=== PATIENT | female | born 1970 | race African-American/Black ===

== ENCOUNTER 2016-10-31 14:55 | Emergency (ER) | payer OTHER ==
[~2016-10-31] VITALS: Ht 160 cm; Wt 78.5 kg
--- NOTE | ~2016-10-31 | EKG ---
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1970 Requested By: Moris Connell Order Number: [id number] MD: Kristian Oakley Measurements Intervals [place] Rate: 65 P: 35 WA: 158 QRS: 11 QRSD: 99 T: 9 QT: 426 QTc: 443 Interpretive Statements Sinus rhythm Borderline T abnormalities, anterior leads Baseline wander in lead(s) II,V2,V3,V4,V5,V6 No previous ECG available for comparison Electronically Signed On 10-31-2016 16:04:05 [employer] by Kristian Oakley [email or web address] <ELECTRONICALLY SIGNED> By: Kristian Oakley MD 10/31/16 1604 1538 1538 Kristian Oakley MD /BRIAN
[~2016-10-31 14:55] MED LIST: ADVAIR 250-501 EACH INH; AMITRIPTYLINE H10 M1 PO; ASPIRIN81 M2 PO; CELEXA 20 MG TA20 M1 PO; CIPROFLOXACIN500 M1 PO; DARVOCET-N 1001 EACH PO; IMITREX 50 MG T50 M1 PO; NOHOMEMEDICATIONS; NORCO 5-325 TA1 EACH PO; NORCO 7.5-3251 EACH PO; ONDANSETRON HCL4 M2 PO; PHENERGAN 25 MG25 M1 PO; PROTONIX40 M2 PO; ZOFRAN4 MG PO
[2016-10-31] MEDS ORDERED: XANAX 0.25 MG0.25 MG PO (15:15)
[2016-10-31 15:22] LABS: ABSOLUTE NEUTROPHILS 3.5 thou/uL (1.4-8.2); BASOPHILS 1.4 % (0.0-2.0); EOSINOPHILS 2.7 % (0.0-3.0); HEMATOCRIT 41.9 % (37.0-47.0); HEMOGLOBIN 13.9 gm/dL (12.0-15.0); LYMPHOCYTES 39.1 % (24.0-44.0); MCH 29.9 pg (26.0-34.0); MCHC 33.2 % (28.0-37.0); MCV 90.1 fL (80.0-100.0); MONOCYTES 7.7 % (1.0-8.0); PLATELET COUNT 342 thou/uL (150-400); POLYS 49.1 % (36.0-66.0); RBC 4.65 mil/uL (4.20-5.00); RDW 14.3 % (10.5-14.5); WBC 7.1 thou/uL (4.0-11.0)
[2016-10-31 15:26] LABS: MANUAL DIFF NO
[2016-10-31 15:31] LABS: CALCIUM 9.1 mg/dL (8.5-10.1); CREATININE 0.7 mg/dL (0.6-1.3); POTASSIUM 3.8 mmol/L (3.5-5.1)
[2016-10-31 15:37] LABS: TOTAL BILIRUBIN 0.4 mg/dL (<0.1-1.0); TOTAL PROTEIN 7.6 g/dL (6.4-8.2)
[2016-10-31 16:35] LABS: URINE BILIRUBIN NEGATIVE (Negative); URINE BLOOD NEGATIVE (Negative); URINE COLOR YELLOW; URINE GLUCOSE-RANDOM* NEGATIVE (Negative); URINE KETONES NEGATIVE (Negative); URINE LEUKOCYTES-REFLEX NEGATIVE (Negative); URINE PROTEIN (DIPSTICK) NEGATIVE (Negative); URINE UROBILINOGEN 0.2 E.U./dl (0.2-1.0)
[2016-10-31] MEDS ORDERED: TORADOL 10 MG T10 MG PO (17:00)
[2016-10-31] MEDS ORDERED: ONDANSETRON HCL4 M2 PO (17:00)
[2016-11-01 14:08] LABS: CHLAMYDIA TRACHOMATIS-PCR Negative (Negative); NEISSERIA GONORRHEA-PCR Negative (Negative)
== END 2016-10-31 17:46 | disposition home or self-care (01) ==
LOC: ER 14:55
PROVIDERS: Emergency Medicine
DX: R10.12 Left upper quadrant pain (principal); R10.32 Left lower quadrant pain; G43.809 Other migraine, not intractable, without status migrainosus; Z90.49 Acquired absence of other specified parts of digestive tract; Z90.721 Acquired absence of ovaries, unilateral; Z88.8 Allergy status to other drugs, medicaments and biological substances

== ENCOUNTER → 2016-11-13 | Outpatient (CLI) | payer OTHER ==
[~2016-11-13] MED LIST changes: +TORADOL 10 MG T10 MG PO; +XANAX 0.25 MG0.25 MG PO
== END ==
LOC: CAT 13:55
DX: R10.9 Unspecified abdominal pain (principal); R10.2 Pelvic and perineal pain

== ENCOUNTER 2017-07-29 17:09 | Emergency (ER) | payer OTHER ==
[~2017-07-29] VITALS: Ht 162.6 cm; Wt 76.2 kg
[2017-07-29] MEDS ORDERED: VALIUM5 MG PO (18:07)
[2017-07-29] MEDS ORDERED: NORCO 5-325 TA1 EACH PO (18:07)
[2017-07-29] MEDS ORDERED: MOBIC15 MG PO (18:07)
== END 2017-07-29 18:34 | disposition home or self-care (01) ==
LOC: ER 17:09
DX: M46.1 Sacroiliitis, not elsewhere classified (principal); M54.18 Radiculopathy, sacral and sacrococcygeal region; G43.909 Migraine, unspecified, not intractable, without status migrainosus; Z90.49 Acquired absence of other specified parts of digestive tract; Z90.721 Acquired absence of ovaries, unilateral; Z88.8 Allergy status to other drugs, medicaments and biological substances

== ENCOUNTER → 2017-07-31 | Outpatient (CLI) | payer OTHER ==
[~2017-07-31] MED LIST changes: +MOBIC15 MG PO; +VALIUM5 MG PO
== END ==
LOC: MRI 07:00
DX: M51.36 Other intervertebral disc degeneration, lumbar region (principal)

== ENCOUNTER → 2017-12-19 | Outpatient (CLI) | payer OTHER ==
[~2017-12-19] VITALS: Ht 160 cm; Wt 78.9 kg
[~2017-12-19] MED LIST changes: +AMITRIPTYLINE H75 M1 PO; +HYDROCODON-ACE1 EAC8 PO; +MIRALAX17 GM PO; +NAPROSYN500 MG PO; +PERCOCET 7.5-31 EACH PO; +PREDNISONE 10 M10 M1 PO; +SENNA-S TABLET1 EACH PO; +SENNA8.6 MG PO; +TRAZODONE HCL50 MG PO; +ULTRAM 50MG TAB50 MG PO; +XANAX1 MG PO; +ZOFRAN ODT4 MG DISSOLVE
--- NOTE | ~2017-12-19 | HPC ---
[facility] [address] [place] [address] PAIN MANAGEMENT CONSULTATION Name: IVAN NAVARRETE Room #: REG Aretha Gallagher#: [id number] Admission: 12/19/17 Attend Phys: Valencia Jacobs MD Discharge: Date of : 70 Report #: [id number] THIS REPORT FOR: //name// CC: Jose Peralta DATE OF SERVICE: 12/19/2017 CHIEF COMPLAINT: Pain in the low back and down into the legs and feet with numbness. HISTORY OF PRESENT ILLNESS: The patient is a 47-year-old female who has been referred to the pain clinic for evaluation of pain and discomfort. Her pain became more problematic in about 06/2017. Denies any trauma. Did note that the pain started slowly and has continued to increase. It involves her lower back radiating down into her legs with numbness and tingling down into her feet. She notes that the pain is worse sometimes with lying down in certain positions, getting up after a long period or prolonged standing can be problematic as well. Denies anything that has made it significantly better. She has not noticed a significant improvement with jwbt-ydj-qfazyib nonsteroidal anti-inflammatory medications. 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 She has tried a TENS unit, but did not find that satisfactory. She had an MRI performed in the past and was told that she had some bulging of disk. She has gone twice to the Emergency Room. Describes some of the discomfort as burning, shooting, aching, throbbing, sharp when standing. Rates it as a 9/10 at this juncture. This is significantly impacting her ability to engage in activities as well as becoming more problematic with work. Prolonged sitting in her job exacerbates her discomfort. ALLERGIES: PHENERGAN CAUSES ITCHING. CURRENT MEDICATIONS: Prednisone 10 mg tablets were provided 3 times daily and the patient has completed a Medrol Dosepak, Xanax 1 mg t.i.d., hydrocodone 7.5 mg 325 one q.4h. p.r.n. pain. The patient has used Meloxicam. Has used Valium for muscle spasms. PAST MEDICAL HISTORY: Pancreatitis, migraine headaches. PAST SURGICAL HISTORY: Ectopic , left ovary removed, appendectomy in 1999. SOCIAL HISTORY: The patient denies use of tobacco. 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 Denies use of alcohol. The patient is . [facility] [address] [place] [address] PAIN MANAGEMENT CONSULTATION Name: IVAN NAVARRETE Room #: REG [facility]#: [id number] Admission: 12/19/17 Attend Phys: Valencia Jacobs MD Discharge: Date of : 70 Report #: [id number] REVIEW OF SYSTEMS: Fourteen points reveal generally good health. History of headaches, wears glasses, insomnia. LABORATORY DATA: MRI of the lumbar spine dated 07/31/2017 reveals MRI of the lumbar spine findings: 1. L1-L2, no significant bulge, canal stenosis or foraminal narrowing. Facet joints are normal. 2. L2-L3, no significant disk bulge, central stenosis and foraminal narrowing. Facet joints are normal. 3. L3-L4, no significant disk bulge, canal stenosis or foraminal narrowing. Facet joints are normal. 4. L4-L5, mild disk desiccation. No significant disk bulge, canal stenosis or foraminal narrowing. Facet joints were normal. 5. L5-S1, mild disk desiccation. No significant disk bulge, canal stenosis, or foraminal narrowing. Facet joints are normal. No pars defect or pars/pedicle stress reaction. PAIN CLINIC ASSESSMENT: 1. History of osteoarthritis involving the hands and spine. 2. No history of rheumatoid arthritis. 3. Height 5 foot 3, weight 174 pounds, BMI is 30.8. 4. VITAL SIGNS: Blood pressure 123/66, respiratory rate 14, pulse 84, saturation 98%. 5. Pain intensity rated as 9. 6. Fall risk. The patient has had no injury, but did see a doctor after a fall off exercise ball. 7. The patient is not on any blood thinners. 8. History of hypertension. The patient is not being treated for hypertension. 9. Opioid therapy. The patient is not receiving opioid therapy on greater than 6 weeks. 10. Risk assessment tool, low. 11. Functional assessment tool 49/70 in regards to general activity, mood, walking ability, work, relationships with others, sleep, enjoyment of life. 12. Recreational drug use. Denies use of recreational drugs, tobacco use. The patient has never smoked. 13. Alcohol use. The patient does not use alcohol. PHYSICAL EXAMINATION: GENERAL: The patient is a well-developed and well-nourished black female. APPEARANCE: The patient appears her stated age. ORIENTATION: The patient is alert and oriented x 3. AFFECT: The patient's affect appears appropriate. HEENT: Head is normocephalic, atraumatic. Extraocular eye muscles are intact. Hearing is good. No nasal congestion. Moist buccal membranes. NECK: Without adenopathy or masses. LUNGS: Clear to auscultation. [facility] [address] [place] [address] PAIN MANAGEMENT CONSULTATION Name: IVAN NAVARRETE Room #: REG [facility]#: [id number] Admission: 12/19/17 Attend Phys: Valencia Jacobs MD Discharge: Date of : 70 Report #: [id number] HEART: Regular rate, normal S1, S2. EXTREMITIES: Upper muscle strength is judged to be 5/5 for the major muscle groups of the upper extremity. Biceps reflexes are +1 bilaterally. Triceps and brachial radialis are difficult to appreciate. Neck flexion, extension, left and right rotation, left and right bending are within normal limits. MUSCULOSKELETAL: Alignment appears normal without scoliosis, kyphosis, or lordosis. Lumbar flexion to 60 degrees caused some increased pain and discomfort down into the patient's legs. Lumbar extension is somewhat limited. Left and right lateral bending cause some increased complaint of discomfort in the lower back area, left and right lateral bending cause some discomfort in the lower portion of the back as well. Major muscle strength is judged to be 5/5 in the major muscle groups of lower extremity. Deep tendon reflexes are +1 bilaterally, difficult to appreciate in the ankles. The patient complains of pain and discomfort with palpation in the left and right sciatic outflow tract with pain increased down the posterior portion of her leg. Straight leg raise is positive on the right. She complains of numbness, burning, stabbing sensation in the posterior portion of her legs down in the L5-S1 distribution and some discomfort in the L4-L5 distribution. The patient is able to stand on her toes, on her heels, but complains of some increased back discomfort with these maneuvers. IMPRESSION: Low back pain with clinical findings consistent with lumbar radiculopathy, L5 distribution, history of migraine headaches, and history of anxiety attacks. RECOMMENDATIONS: We discussed treatment options with the patient. At this juncture, she has the MRI results. These were reviewed with her on the computer. Areas of abnormality were noted. The patient states that she understands. Continues to have pain and discomfort in the L4 and L5 distribution. She is experiencing pain which is radiating down into her leg. Again, this pain has gotten worse over the last few months. Did fall from an exercise ball in July and was seen in the Emergency Room because of pain, which radiated down into her legs at that juncture. She was treated with medications and a conservative approach was taken. At this juncture, pain has become more problematic. She is having difficulty with activities of daily living. She sits for a prolonged periods of time at work. The pain is becoming more of a problem. At this juncture, she would like a more definitive treatment. We reviewed the anatomy of her low back with a model. We have explained that sometimes pressure on a nerve can cause pain and discomfort, which radiates down into the legs and clinically behaves as does a herniated disk. One can develop fissure and the nucleus pulposus can leak on to nerves and cause chemical irritation, which could be responsible for pain and discomfort. At this juncture, we will proceed with an epidural steroid injection. Risks and benefits of the procedure were discussed with the patient. Possible complications were discussed. We will petition her insurance company for [address] [address] PAIN MANAGEMENT CONSULTATION Name: IVAN NAVARRETE Prashant Room #: REG [facility]#: [id number] Admission: 12/19/17 Attend Phys: Valencia Jacobs MD Discharge: Date of : 70 Report #: [id number] precertification to proceed with lumbar epidural steroid injection. We would like to thank you for letting us participate in her care. We hope she continues to improve. <ELECTRONICALLY SIGNED> By: Valencia Jacobs MD 01/09/18 1429 0825 1646 Valencia Jacobs MD /nt
[2017-12-19 13:04] VITALS: BP 123/66
== END ==
LOC: PAIN 06:53
DX: M54.16 Radiculopathy, lumbar region (principal); F41.9 Anxiety disorder, unspecified; G43.909 Migraine, unspecified, not intractable, without status migrainosus; Z90.49 Acquired absence of other specified parts of digestive tract; Z90.721 Acquired absence of ovaries, unilateral; Z88.8 Allergy status to other drugs, medicaments and biological substances

== ENCOUNTER → 2017-12-25 | Outpatient (CLI) | payer OTHER | LOC: ULTRA 09:12 | DX: D25.9 Leiomyoma of uterus, unspecified (principal); N88.8 Other specified noninflammatory disorders of cervix uteri; Z90.721 Acquired absence of ovaries, unilateral ==

== ENCOUNTER → 2018-01-11 | Outpatient (CLI) | payer OTHER ==
[~2018-01-11] VITALS: Ht 160 cm; Wt 80.7 kg
--- NOTE | ~2018-01-11 | HPC ---
[facility] [address] PAIN MANAGEMENT CONSULTATION Name: IVAN NAVARRETE Room #: REG [facility] DickPamelanAaPamela#: [id number] Admission: 01/11/18 Attend Phys: Valencia Jacobs MD Discharge: Date of : 70 Report #: [id number] THIS REPORT FOR: //name// CC: Jose Peralta DATE OF SERVICE: 01/11/2018 FOLLOWUP COMPLAINT: Here for the injection. FOLLOWUP HISTORY: The patient is a 47-year-old black female. She has been seen in the pain clinic because of lumbar radiculopathy. She has pain, which is radiating down into the lower portion of her back. Her insurance company has been notified. She has been given the ability to proceed with an epidural steroid injection. She notes that the pain continues to be problematic and radiates down into the low back and down into her legs involving her feet. Notes that the pain is an 8/10. Describes it as burning, shooting, aching, tingling, sharp, throbbing and worse when she is lying down, sitting for a prolonged period of time or prolonged standing. I am not sure that anything significantly at least alleviates the pain. PHYSICAL EXAMINATION: GENERAL: The patient is a well-developed black female. She appears her stated age. She is alert and oriented x 3. Affect: The patient's affect is appropriate. HEENT: Normocephalic, atraumatic. Extraocular eye muscles intact. Hearing is good. Nasal areas are not problematic. Mucous membranes are moist. NECK: Without adenopathy or masses. LUNGS: Clear to auscultation. HEART: Regular rate with normal S1 and S2. EXTREMITIES: Muscle strength in the upper extremity is judged to be 5/5 for the major muscle groups. The lower extremity areas indicate pain and discomfort. Deep tendon reflexes are +1 at the ankles bilaterally. She has pain and discomfort with palpation in the left and right sciatic outflow tracts. Straight leg raising is positive on the right. The patient does complain of some numbness, burning and stabbing in the posterior portion of her legs at the L4-L5 distribution and some at the L4-L5 distribution. She is able to stand on her toes and her heels. Note some increased pain with this maneuver. IMPRESSION: 1. Low back pain with L5-S1 radicular pain radiating down into the posterior portion of her right L5-S1 distribution on the right. 2. History of migraine headaches. 3. [place] [address] PAIN MANAGEMENT CONSULTATION Name: IVAN NAVARRETE [facility] #: [facility] [id number] Admission: 01/11/18 Attend Phys: Valencia Jacobs MD Discharge: Date of : 70 Report #: [id number] RECOMMENDATIONS: We discussed treatment options with the patient. Risks and benefits of an epidural steroid injection were explained. Possible complications were discussed. They include, but are not limited to infection, increased muscle soreness, headache, bleeding, worsening of pain, nerve trauma, spinal headache. The patient elects to proceed. PROCEDURE NOTE: The patient was placed in prone position. Fluoroscopy was used to identify the L4, L5 and L5-S1 areas. Fluoroscopy using an anterior, posterior as well as a lateral approach were used to locate the target area for the needle. This area was infiltrated with 0.25% bupivacaine. A total of 3 mL of 0.25% bupivacaine was infiltrated. A 17-gauge Tuohy with loss of resistance technique was used to gain access to the epidural space. There was no CSF, heme or paresthesia. Total of 80 mg Depo-Medrol, 40 mg triamcinolone and 2 mL of 0.25% bupivacaine was injected. The patient tolerated the procedure well. There were no complications. She remained in the pain clinic for an appropriate amount of time. She will follow up in the future as needed. We would like to thank you for letting us participate in her care. Her pain decreased to 0 at the time of discharge, 10 seconds fluoroscopy time was used. <ELECTRONICALLY SIGNED> By: Valencia Jacobs MD 01/30/18 0816 1544 2115 Valencia Jacobs MD /[facility]
[2018-01-11 10:49] VITALS: BP 119/72
== END | disposition home or self-care (01) ==
LOC: PAIN 07:21
DX: M54.16 Radiculopathy, lumbar region (principal); G43.909 Migraine, unspecified, not intractable, without status migrainosus; Z86.59 Personal history of other mental and behavioral disorders; Z88.8 Allergy status to other drugs, medicaments and biological substances; Z79.891 Long term (current) use of opiate analgesic

== ENCOUNTER → 2018-05-06 | Outpatient (CLI) | payer OTHER ==
[~2018-05-06] MED LIST changes: -MIRALAX17 GM PO; -PERCOCET 7.5-31 EACH PO; -SENNA-S TABLET1 EACH PO; -SENNA8.6 MG PO; -ZOFRAN ODT4 MG DISSOLVE
== END ==
LOC: ULTRA 09:45
DX: K80.80 Other cholelithiasis without obstruction (principal)

== ENCOUNTER 2018-05-28 17:47 | Inpatient (IN) | payer OTHER ==
[~2018-05-28] VITALS: Ht 160 cm; Wt 77.6 kg
--- NOTE | ~2018-05-28 | PATH ---
[facility] [address] [place] [address] PATHOLOGY RPT PROCEDURE Name: IVAN NAVARRETE Prashant Room #: 417-I [facility] IN M.R.#: [id number] Admission: 05/28/18 Date of : 70 Discharge: 05/30/18 Report #: [id number] Path Case #: [id number] [facility] Accession Number: [id number] . 01 Material submitted: . GALLBLADDER . 01 Clinical history: . cholelithiasis, incarcerated umbicial hernia . 02 Diagnosis: Gallbladder, cholecystectomy: - Mild chronic cholecystitis. - Cholesterolosis. cholelithiasis. . (IUV:mml; 06/03/18) QL/06/03/2018 . 02 Electronically signed: . Oriana Real MD, Pathologist NPI- [id number] . 01 Gross description: . The specimen is received in formalin, labeled "Ivan Navarrete and gallbladder", is a previously opened 7.4 x 1.5 x 1.5 cm gallbladder. The serosa is smooth, flanagan-green. The mucosa is diffusely covered with yellow flecks. The gallbladder wall is 0.1 cm thick. No discrete calculi or masses are identified. 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 . ([facility]; 05/30/2018) . . . . / . 02 Pathologist provided ICD-10: K80.10 . 02 CPT . 490876 Performed at: [address], [place] [id number] MD Prakash Borges MD Phone: [phone] Performed at: [address] [address] PATHOLOGY RPT PROCEDURE Name: IVAN NAVARRETE Y Room #: 417-I DIS IN .R.#: [id number] Admission: 05/28/18 Date of : 70 Discharge: 05/30/18 Report #: [id number] Path Case #: [id number] [address] [id number] MD Oriana Real MD Phone: [phone]
--- NOTE | ~2018-05-28 | EKG ---
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 : 1970 Requested By: John Ramírez Order Number: [id number] MD: Luis Mcgrath Measurements Intervals [place] Rate: 61 P: 18 PA: 167 QRS: 21 QRSD: 93 T: 5 QT: 435 QTc: 439 Interpretive Statements Sinus rhythm Nonspecific T abnormalities Compared to ECG 09/26/2017 14:52:30 T-wave abnormality now present Electronically Signed On 05-29-2018 9:07:02 CDT by Luis Mcgrath [email or web address] <ELECTRONICALLY SIGNED> By: Luis Mcgrath MD, [facility] 05/29/1807 4 Luis Mcgrath MD, [facility] /EPI
--- NOTE | ~2018-05-28 | O ---
[facility] [place] [address] OPERATIVE REPORT Name: IVAN NAVARRETE Room #: 417-I [facility] IN ..#: [id number] Admission: 05/28/18 Attend Phys: John Ramírez MD Discharge: 05/30/18 Date of : 70 Report #: [id number] THIS REPORT FOR: //name// CC: Jose Ramírez DATE OF SERVICE: 05/30/2018 SURGEON: Juan Eubanks MD. APARTMENT LEASING AGENT: ERIC Hodge. PREOPERATIVE DIAGNOSIS: Symptomatic cholelithiasis. POSTOPERATIVE DIAGNOSES: 1. Symptomatic cholelithiasis. 2. Incarcerated incisional ventral hernia. PROCEDURES: 1. Laparoscopic cholecystectomy with intraoperative cholangiogram. 2. Laparoscopic primary repair of incarcerated incisional ventral hernia. ANESTHESIA: General endotracheal anesthesia and local anesthetic. ESTIMATED BLOOD LOSS: 5 mL. SPECIMEN: Gallbladder. COMPLICATIONS: None appreciated. INDICATIONS FOR PROCEDURE: This is a 47-year-old female patient with a known history of gallstones. She was seen in [facility] with right upper quadrant abdominal pain radiating to her right back, with nausea and emesis. Her symptoms have been intermittently occurring over the past 2 months. She also complained of chest pain and was seen by Cardiology, who cleared her from a cardiac standpoint. Her CT during this admission was normal; however, her ultrasound revealed a large mobile gallstone measuring nearly 2.5 cm in size. No gallbladder wall thickening, pericholecystic fluid or common bile duct dilatation was seen. The patient's white blood cell count and liver function tests were within normal limits. The patient presents now for laparoscopic cholecystectomy with cholangiogram. OPERATIVE FINDINGS: Upon entrance into the abdominal cavity, the liver, stomach, small bowel and colon and surrounding area appeared otherwise normal. There were no acute inflammatory changes associated with the gallbladder. The critical view consisting of the cystic artery, cystic duct and lower edge of the [facility] [address] [place] [address] OPERATIVE REPORT Name: IVAN NAVARRETE Prashant Room #: 417-I [facility] IN [facility].#: [id number] Admission: 05/28/18 Attend Phys: John Ramírez MD Discharge: 05/30/18 Date of : 70 Report #: [id number] gallbladder forming a window through which the liver was visible was seen prior to clipping the cystic duct for cholangiogram. The cholangiogram showed normal filling of the entire biliary tree, with free flow of contrast into the duodenal sweep and no filling defects identified. After division of the cystic duct, 3 clips remained on the cystic duct stump. While removing the gallbladder from the abdominal cavity, omentum was seen extending up into an incarcerated incisional ventral hernia defect at the umbilicus. After taking this down and identifying the defect, this was felt to be amenable to primary suture repair after removal of the gallbladder from the abdominal cavity. This repair of the hernia required a separate suture. The gallbladder contained mixed gallstones. There were no acute inflammatory changes associated with the gallbladder. DESCRIPTION OF PROCEDURE IN DETAIL: After the risks, benefits and expectations of the operation were discussed in detail with the patient, informed consent was obtained. The patient was identified in the preoperative holding area. She was given IV antibiotics as documented in the chart [facility]. The patient was then taken to the operating room and she was placed in the supine position. She was given IV sedation and she was intubated without incident. Her abdomen was then prepped and draped in the standard sterile fashion. A time-out was performed to identify the correct patient and procedure. Local anesthetic was infiltrated into the skin and subcutaneous tissue supraumbilically, where a curvilinear incision was made with #15 blade scalpel. A 11-mm Visiport was then placed intraperitoneally with a 0-degree angled laparoscope. Pneumoperitoneum was achieved with insufflation of carbon dioxide to 15 mmHg. The patient was then placed in the reverse Trendelenburg position, rotated to his left. Additional 5-mm ports were placed in the right mid costal and right lateral subcostal areas under direct visualization after local anesthetic was infiltrated into the skin and subcutaneous tissue and appropriately sized incisions were made. The operative findings are as noted above. The dome of the gallbladder was retracted in a cephalad direction. The gallbladder peritoneum was then scored medially and laterally to identify the critical view as described above. The cystic artery and cystic duct were the only two structures seen entering the gallbladder. The cystic duct was then clipped at its junction with the gallbladder. A ductotomy was created and a cholangiogram was performed, with findings as noted above. The cholangiocatheter was then inserted. The cystic duct was triply clipped and divided with the ultrasonic dissector, leaving 3 clips on the cystic duct stump with a good seal. The cystic artery was divided with the ultrasonic dissector as well with good hemostasis. The gallbladder was then dissected out of the liver bed, without entrance into the gallbladder or liver bed. The gallbladder was placed in an Endopouch and removed through the 11-mm port site. While doing so, an omental adhesion was seen extending up to the anterior abdominal wall. This was taken down after removal of the gallbladder from the abdominal [address] [address] OPERATIVE REPORT Name: IVAN NAVARRETE Room #: 417-I DIS [facility]#: [id number] Admission: 05/28/18 Attend Phys: John Ramírez MD Discharge: 05/30/18 Date of : 70 Report #: [id number] cavity. At this point, an incisional ventral hernia defect was appreciated. This was amenable to primary repair with a geukrs-ol-dijon 0 PDS suture. The suture was placed with a Vipul-Lemuel laparoscopic fascial closure device and tied under direct visualization to ensure no incorporation of the intra-abdominal content. An 0 PDS suture was then used to close the 11-mm port site fascial opening. This was also tied under direct visualization. The abdominal cavity was then desufflated and the ports were removed. Interrupted subcuticular 4-0 Monocryl sutures and Dermabond were used to close the skin incisions. The patient tolerated the procedure well. She was awakened, extubated and taken to the recovery room in stable condition with no apparent intraoperative complications. <ELECTRONICALLY SIGNED> By: Juan Eubanks MD, FACS 06/03/18 2303 2309 0006 Juan Eubanks MD, FACS /nt
[2018-05-28 17:48] VITALS: BP 99/71
[2018-05-28 18:09] LABS: URINE BILIRUBIN NEGATIVE (Negative); URINE BLOOD NEGATIVE (Negative); URINE CLARITY CLEAR; URINE COLOR YELLOW; URINE GLUCOSE-RANDOM* NEGATIVE (Negative); URINE KETONES NEGATIVE (Negative); URINE LEUKOCYTES-REFLEX NEGATIVE (Negative); URINE NITRITE-REFLEX NEGATIVE (Negative); URINE PROTEIN (DIPSTICK) NEGATIVE (Negative)
[2018-05-28 18:24] LABS: ABSOLUTE NEUTROPHILS 2.3 thou/uL (1.4-8.2); BASOPHILS 0.9 % (0.0-2.0); EOSINOPHILS 3.4 % (0.0-3.0); HEMATOCRIT 40.2 % (37.0-47.0); HEMOGLOBIN 13.4 gm/dL (12.0-15.0); LYMPHOCYTES 48.5 % (24.0-44.0); MCHC 33.2 g/dL (28.0-37.0); MCV 90.3 fL (80.0-100.0); MONOCYTES 8.8 % (1.0-8.0); PLATELET COUNT 325 thou/uL (150-400); POLYS 38.4 % (36.0-66.0); RBC 4.45 mil/uL (4.20-5.00); RDW 13.7 % (10.5-14.5); WBC 6.1 thou/uL (4.0-11.0)
[2018-05-28 18:29] LABS: CREATININE 0.8 mg/dL (0.6-1.0); POTASSIUM 3.3 mmol/L (3.5-5.1)
[2018-05-28 18:36] LABS: ALBUMIN 4.1 g/dL (3.4-5.0); TOTAL BILIRUBIN 0.4 mg/dL (<0.1-1.0); TOTAL PROTEIN 7.5 g/dL (6.4-8.2)
[2018-05-28 21:33] VITALS: BP 111/66
[2018-05-28 22:56] VITALS: BP 94/58
[2018-05-29 00:38] VITALS: BP 87/51
[2018-05-29 03:46] VITALS: BP 104/62
[2018-05-29 07:30] VITALS: BP 85/36
[2018-05-29 08:11] LABS: CALCIUM 8.6 mg/dL (8.5-10.1); CREATININE 0.7 mg/dL (0.6-1.0); POTASSIUM 3.9 mmol/L (3.5-5.1)
[2018-05-29 11:47] VITALS: BP 117/53
[2018-05-29 17:50] VITALS: BP 104/59
[2018-05-29 20:01] VITALS: BP 105/56
[2018-05-30 03:28] VITALS: BP 108/57
[2018-05-30 05:45] LABS: HEMATOCRIT 38.6 % (37.0-47.0); HEMOGLOBIN 12.9 gm/dL (12.0-15.0); MCH 30.1 pg (26.0-34.0); MCHC 33.3 g/dL (28.0-37.0); MCV 90.2 fL (80.0-100.0); RBC 4.28 mil/uL (4.20-5.00); RDW 13.9 % (10.5-14.5); WBC 3.9 thou/uL (4.0-11.0)
[2018-05-30 06:04] LABS: ALBUMIN 3.2 g/dL (3.4-5.0); CALCIUM 8.3 mg/dL (8.5-10.1); CREATININE 0.7 mg/dL (0.6-1.0); POTASSIUM 3.5 mmol/L (3.5-5.1); TOTAL BILIRUBIN 0.5 mg/dL (<0.1-1.0)
[2018-05-30 08:04] VITALS: BP 112/68
[2018-05-30] MEDS ORDERED: SENNA-S TABLET1 EACH PO (10:03)
[2018-05-30] MEDS ORDERED: NORCO 5-325 TA1 EACH PO (10:03)
[2018-05-30] MEDS ORDERED: ZOFRAN ODT4 MG DISSOLVE (15:25)
[2018-05-30 15:31] VITALS: BP 112/68
[2018-05-30 16:18] VITALS: BP 112/68
[2018-05-31] MEDS ORDERED: PERCOCET 7.5-31 EACH PO (11:46)
== END 2018-05-30 19:04 | disposition home or self-care (01) | DRG 417 ==
LOC: ER 17:47 → EROBS 20:50 → 4E 20:50
PROVIDERS: Hospitalist; Nurse Practitioner Acute Care; Physician Assistant
DX: K80.46 Calculus of bile duct with acute and chronic cholecystitis without obstruction (principal); K65.9 Peritonitis, unspecified; E87.6 Hypokalemia; F41.9 Anxiety disorder, unspecified; Z60.2 Problems related to living alone; G43.909 Migraine, unspecified, not intractable, without status migrainosus; G89.29 Other chronic pain; M54.9 Dorsalgia, unspecified; K80.20 Calculus of gallbladder without cholecystitis without obstruction; Z90.49 Acquired absence of other specified parts of digestive tract; Z88.8 Allergy status to other drugs, medicaments and biological substances; Z83.79 Family history of other diseases of the digestive system; Z79.899 Other long term (current) drug therapy; Z90.721 Acquired absence of ovaries, unilateral
CPT/HCPCS: 10084; 50010; 50101; 50249; 50411; 50555; 50558; 50962; 51975; 52265; 53307; 54022; 54118; 55245; 55317; 56462; 56525; 56526; 62110; 62900; 70005

== ENCOUNTER 2018-06-01 15:51 | Emergency (ER) | payer OTHER ==
[~2018-06-01 15:51] MED LIST changes: +PERCOCET 7.5-31 EACH PO; +SENNA-S TABLET1 EACH PO; +ZOFRAN ODT4 MG DISSOLVE
== END 2018-06-01 16:16 | disposition left against medical advice (07) ==
LOC: ER 15:51
DX: Z53.21 Procedure and treatment not carried out due to patient leaving prior to being seen by health care provider (principal)

== ENCOUNTER → 2018-12-18 | Outpatient (CLI) | payer OTHER ==
[~2018-12-18] MED LIST changes: +MIRALAX17 GM PO; +SENNA8.6 MG PO
== END ==
LOC: ULTRA 11:26
DX: R10.31 Right lower quadrant pain (principal); R10.2 Pelvic and perineal pain; Z90.721 Acquired absence of ovaries, unilateral; Z87.59 Personal history of other complications of pregnancy, childbirth and the puerperium

== ENCOUNTER → 2019-02-07 | Outpatient (CLI) | payer OTHER ==
[~2019-02-07] VITALS: Ht 160 cm; Wt 74.8 kg
[~2019-02-07] MED LIST changes: +FLEXERIL PO; +MEDROLDOSEPACK PO; +TRAMADOL 50 MG50 MG PO
--- NOTE | ~2019-02-07 | HPC ---
[facility] [address] [place] [address] PAIN MANAGEMENT CONSULTATION Name: IVAN NAVARRETE Room #: REG JEANETH Elliott#: [id number] Admission: 02/07/19 ������������������ Attend Phys: Valencia Jacobs MD Discharge: ������������������ Date of : 70 Report #: [id number] THIS REPORT FOR: //name// CC: Jose Jacobs DATE OF SERVICE: 02/07/2019 CHIEF COMPLAINT: Return of pain in the low back down into the left and right leg. HISTORY: The patient is a 48-year-old female who has been seen in the pain clinic in the past because of lumbar radiculopathy. She underwent an epidural steroid injection in 12/2017. She was experiencing pain that radiated down into her right leg. An epidural steroid injection was quite beneficial. She has been doing reasonably well until a few weeks ago. She has noticed a return of pain and discomfort. It is radiating down into both the left as well as the right leg. She denies any new bowel or bladder dysfunction. Denies any trauma. Has not undergone a fall. Overall, she just noticed a slow return of her pain. She describes it as a constant, burning, shooting, and throbbing discomfort. Rates it as an 8/10. As you may recall, she initially injured after she fell off an exercise ball and also was lifting sheetrock. She has noticed the pain has been problematic. She would like to return and undergo an epidural steroid injection to help decrease her discomfort. ALLERGIES: PHENERGAN. CURRENT MEDICATIONS: Flexeril 10 mg 1 p.o. t.i.d., MiraLax 17 grams, alprazolam 1 mg p.o. t.i.d. for anxiety. PAIN CLINIC ASSESSMENT/PQRS: 1. The patient has some osteoarthritic changes in her hands as well as in her spine. She is not being treated for rheumatoid arthritis. 2. Height 5 feet 3 inches, weight 165 pounds, BMI is 29.2. 3. Vital signs: Blood pressure 120/69, pulse 85, respiratory rate 16, room air saturation 100%. 4. Pain intensity 06/07. 5. Fall risk. The patient has not fallen in the last 3 months. 6. Blood thinner. The patient is not on a blood thinning medication. 7. Hypertension. The patient is being treated for hypertension. 8. Opiate greater than 6 weeks. The patient is not on an opioid regimen. 9. Functional assessment tool 50/70. 10. Risk assessment tool for opioid use low. 11. Recreational drug use. The patient denies use of recreational drugs. 12. Tobacco. The patient has never smoked. 13. Alcohol. The patient denies frequent use of alcoholic beverages. [facility] [address] [place] [address] PAIN MANAGEMENT CONSULTATION Name: IVAN NAVARRETE Prashant [id number] Admission: 02/07/19 ������������������ Attend Phys: Valencia Jacobs MD Discharge: ������������������ Date of : 70 Report #: [id number] PHYSICAL EXAMINATION: GENERAL: The patient is a well-developed, well-nourished black female, appears her stated age. She is alert and oriented x 3. Her affect is appropriate. Speech is fluent. HEENT: Normocephalic, atraumatic. Extraocular eye muscles intact. Sclerae nonicteric. Mucous membranes are moist. NECK: Without adenopathy or JVD. EXTREMITIES: Upper extremity muscle strength is judged to be 5/5 for the major muscle groups in the upper extremity. The patient without significant scoliosis, kyphosis, or lordosis. The patient complains of pain and discomfort that is radiating down in the left and right sciatic outflow tract. Pain most problematic on the right side. The patient has a positive straight leg raise. Has decreased sensation in the L5/S1 dermatomal distribution primarily on the right side. IMPRESSION: 1. Lumbar radiculopathy. 2. Anxiety. 3. Migraine headaches. RECOMMENDATIONS: We discussed treatment options with the patient. Risks and benefits of an epidural steroid injection were again reviewed. The patient gleaned significant benefit from the epidural steroid injection about a year ago. Overall, she has been functional. Feels that the epidural steroid injections were beneficial. She has noticed a return of her pain with sensory changes with numbness and tingling in the lower extremity, particularly in the L5-S1 dermatomal distribution on the right as well as some on the left. She has a positive straight leg raise. The patient has returned today for an epidural steroid injection. We will contact her insurance companies with the hopes that she can proceed with treatment to help quell her discomfort. The patient has continued to do stretching exercises. States that she has continued to use nonsteroidal anti-inflammatory medications. Has had an MRI back in 2017, which showed disk desiccation at L4-L5 and L5-S1 desiccation. We would like to thank you for letting us participate in her care. We hope she continues to improve. ��������������������������������������������� ���������������������������������������� By: ��������������������������������������������� [id number] Valencia Jacobs MD /STACIA
[2019-02-07 10:38] VITALS: BP 120/69
--- NOTE | 2019-02-07 10:47 | NUR ---
Pain Clinic Assessment: 1. History of Osteoarthritis: SPINE HANDS History of Rheumatoid Arthritis: Not Applicable 2. Height: 5 ft. 3 in. 160.0 cm. Weight: 165.0 lb. oz. 74.844 kg. Patient's BMI: 29.2 3. Vital Signs: BP: 120/69 Pulse: 85 Resp: 16 Temp: 02 Sat: 100 ECG Mon: 4. Pain Intensity: 8 5. Fall Risk: Dizziness: N Needs help standing or walking: N Fallen in the last 3 months: N Fall risk comments: 6. Patient on Blood Thinner: None 7. History of Hypertension: Y 8. Opioid Therapy greater than 6 weeks: N Opiate Contract Signed: 9. Risk Assessment Tool Provided: LOW-0 10. Functional Assessment Tool: 50/70 11. Recreational Drug Use: Never Drug Type: Tobacco Use: Never Smoker Tobacco Type: Amount or Packs/day: How Many Years: Alcohol Use: No Frequency: Quant:
== END ==
LOC: PAIN 06:52
DX: M54.16 Radiculopathy, lumbar region (principal); G43.909 Migraine, unspecified, not intractable, without status migrainosus; F41.9 Anxiety disorder, unspecified; Z79.899 Other long term (current) drug therapy

== ENCOUNTER → 2019-02-14 | Outpatient (CLI) | payer OTHER ==
[~2019-02-14] VITALS: Ht 160 cm; Wt 74.1 kg
--- NOTE | ~2019-02-14 | HPC ---
[facility] [place] [address] PAIN MANAGEMENT CONSULTATION Name: IVAN NAVARRETE Room #: REG JEANETH JenningsPamelaAnaPamela#: [id number] Admission: 02/14/19 ������������������ Attend Phys: Valencia Jacobs MD Discharge: ������������������ Date of : 70 Report #: [id number] THIS REPORT FOR: //name// CC: Jose Peralta DATE OF SERVICE: 02/14/2019 CHIEF COMPLAINT: Pain in the low back with pain radiating down into the left leg. Right leg has some pain as well. HISTORY: The patient is a 48-year-old female who has been seen in the pain clinic because of lumbar radiculopathy. She has undergone an epidural steroid injection and gleaned benefits from these. She returns today with pain that is rated 5/10. She notes some improvement in her pain. Has pain that is radiating down into the left leg. It is worse in the L5-S1 area. Does have some pain and discomfort, but less so in the L5-S1 area on the right. Denies any new bowel or bladder problems. No saddle numbness. She has returned today with the thought of undergoing another epidural steroid injection to help with the pain and discomfort which she has been experiencing. As you may recall, she was injured after she fell off an exercise ball. Also with lifting sheetrock. ALLERGIES: PHENERGAN. CURRENT MEDICATIONS: Flexeril 10 mg t.i.d., MiraLax 17 grams, alprazolam 1 mg p.o. t.i.d. for anxiety. PAIN CLINIC ASSESSMENT/PQRS: 1. The patient has some osteoarthritic changes in her hands as well as in her spine. She is not being treated for rheumatoid arthritis. 2. Height 5 feet 3 inches, weight 163 pounds, BMI is 29.0. 3. Vital signs: Blood pressure is 130/84, pulse 78, respiratory rate 16, room air saturation is 100%. 4. Pain in intensity, is 5/10. 5. Fall risk. The patient has not fallen in the last 3 months or the patient has not fallen since we saw her last. 6. Blood thinner. The patient is not on a blood thinning medication. 7. Hypertension. The patient is being treated for hypertension. 8. Opioids greater than 6 weeks. The patient is not on a regular opioid management program. 9. Risk assessment tool, low for opioid use. 10. Functional assessment 50/70. 11. Recreational drug use: The patient denies. 12. Tobacco: The patient has never smoked. 13. Alcohol: The patient denies use of frequent alcohol use. [address] [address] PAIN MANAGEMENT CONSULTATION Name: IVAN NAVARRETE Room #: REG [facility] Elliott#: [id number] Admission: 02/14/19 ������������������ Attend Phys: Valencia Jacobs MD Discharge: ������������������ Date of : 70 Report #: [id number] PHYSICAL EXAMINATION: GENERAL: The patient is a well-developed, well-nourished black female, appears her stated age. She is alert and oriented x 3. Affect is appropriate. Speech is fluent. HEENT: Normocephalic, atraumatic. Extraocular eye muscles intact. Sclerae nonicteric. Mucous membranes are moist. NECK: Without adenopathy or JVD. EXTREMITIES: Upper extremity muscle strength is judged to be 5/5 for the major muscle groups in the upper extremity. The patient without significant scoliosis, kyphosis, or lordosis. The patient has pain and discomfort which is radiating down the L5-S1 dermatomal distribution on her left primarily as well as the involvement of the right sciatic outflow tract. The patient has positive straight leg raise. IMPRESSION: 1. Lumbar radiculopathy, L5-S1 dermatomal distribution. 2. Anxiety. 3. Migraine headaches. RECOMMENDATIONS: We discussed treatment options with the patient. We would like to proceed with an injection. Possible complications were again discussed with the patient. They include but are not limited to infection, worsening of pain, no improvement in pain, headache, or nerve damage. The patient elects to proceed. PROCEDURE NOTE: The patient was taken to the procedure area. She was then assisted in getting on the examination table. Her back was sterilely prepped with a Betadine solution. Fluoroscopy using anterior, posterior as well as lateral viewing were implemented. At the L5-S1 dermatomal area using a left paramedian approach. A 25-gauge needle was used to inject this area with local anesthetic. A 17-gauge Tuohy with loss of resistance technique was used to gain access to the epidural space at the L5-S1 area. Aspiration was negative. A total of 80 mg Depo-Medrol, 40 mg triamcinolone, and 2 mL of 0.25% bupivacaine was injected. A total of 10 seconds fluoroscopy time was used. The patient's pain was 0 at the time of discharge. She remained in the Pain Clinic for an appropriate amount of time. She will follow up in the future as needed. We would like to thank you for letting us participate in her care. We hope she continues to improve. ��������������������������������������������� ���������������������������������������� By: ��������������������������������������������� 1522 2130 Valencia Jacobs MD /PMT
[2019-02-14 13:12] VITALS: BP 130/84
--- NOTE | 2019-02-14 13:22 | NUR ---
Pain Clinic Assessment: 1. History of Osteoarthritis: SPINE HANDS History of Rheumatoid Arthritis: Not Applicable 2. Height: 5 ft. 3 in. 160.0 cm. Weight: 163.4 lb. oz. 74.118 kg. Patient's BMI: 29.0 3. Vital Signs: BP: 130/84 Pulse: 78 Resp: 16 Temp: 02 Sat: 100 ECG Mon: 4. Pain Intensity: 5 5. Fall Risk: Dizziness: N Needs help standing or walking: N Fallen in the last 3 months: N Fall risk comments: 6. Patient on Blood Thinner: None 7. History of Hypertension: Y 8. Opioid Therapy greater than 6 weeks: N Opiate Contract Signed: 9. Risk Assessment Tool Provided: LOW-0 10. Functional Assessment Tool: 50/70 11. Recreational Drug Use: Never Drug Type: Tobacco Use: Never Smoker Tobacco Type: Amount or Packs/day: How Many Years: Alcohol Use: No Frequency: Quant:
== END | disposition home or self-care (01) ==
LOC: PAIN 06:56
DX: M54.16 Radiculopathy, lumbar region (principal); G89.29 Other chronic pain; I10 Essential (primary) hypertension; F41.9 Anxiety disorder, unspecified; G43.909 Migraine, unspecified, not intractable, without status migrainosus; Z88.8 Allergy status to other drugs, medicaments and biological substances; Z98.890 Other specified postprocedural states; Z79.899 Other long term (current) drug therapy; Z90.49 Acquired absence of other specified parts of digestive tract

== ENCOUNTER 2019-07-05 17:52 | Emergency (ER) | payer OTHER ==
[~2019-07-05] VITALS: Ht 160 cm; Wt 71.2 kg
[2019-07-05] MEDS ORDERED: MOBIC15 MG PO (19:57)
[2019-07-05 20:03] VITALS: BP 115/77
== END 2019-07-05 20:05 | disposition home or self-care (01) ==
LOC: ER 17:52
DX: S83.91XA Sprain of unspecified site of right knee, initial encounter (principal); Z90.49 Acquired absence of other specified parts of digestive tract; Z98.890 Other specified postprocedural states; Z88.8 Allergy status to other drugs, medicaments and biological substances; X50.0XXA Overexertion from strenuous movement or load, initial encounter; Y92.89 Other specified places as the place of occurrence of the external cause; Y93.89 Activity, other specified; Y99.8 Other external cause status

== ENCOUNTER 2019-07-11 11:01 | Emergency (ER) | payer OTHER ==
[~2019-07-11] VITALS: Ht 160 cm; Wt 71.7 kg
[2019-07-11 12:43] LABS: ABSOLUTE NEUTROPHILS 2.1 thou/uL (1.4-8.2); BASOPHILS 1.2 % (0.0-2.0); EOSINOPHILS 5.2 % (0.0-3.0); HEMATOCRIT 40.5 % (37.0-47.0); HEMOGLOBIN 13.2 gm/dL (12.0-15.0); LYMPHOCYTES 38.5 % (24.0-44.0); MCH 29.8 pg (26.0-34.0); MCHC 32.7 g/dL (28.0-37.0); MCV 91.1 fL (80.0-100.0); MONOCYTES 7.5 % (1.0-8.0); PLATELET COUNT 326 thou/uL (150-400); POLYS 47.6 % (36.0-66.0); RBC 4.45 mil/uL (4.20-5.00); RDW 13.8 % (10.5-14.5); WBC 4.5 thou/uL (4.0-11.0)
[2019-07-11 12:47] LABS: CALCIUM 9.4 mg/dL (8.5-10.1); CREATININE 0.7 mg/dL (0.6-1.0); POTASSIUM 3.7 mmol/L (3.5-5.1)
[2019-07-11 12:52] LABS: APTT 28.5 Seconds (24.5-32.8); PROTIME 9.9 Seconds (9.3-11.4)
[2019-07-11 12:53] LABS: ALBUMIN 3.6 g/dL (3.4-5.0); TOTAL BILIRUBIN 0.3 mg/dL (<0.1-1.0); TOTAL PROTEIN 7.3 g/dL (6.4-8.2)
[2019-07-11 13:24] LABS: URINE BILIRUBIN NEGATIVE (Negative); URINE BLOOD NEGATIVE (Negative); URINE CLARITY CLEAR; URINE COLOR YELLOW; URINE GLUCOSE-RANDOM* NEGATIVE (Negative); URINE KETONES NEGATIVE (Negative); URINE LEUKOCYTES-REFLEX NEGATIVE (Negative); URINE NITRITE-REFLEX NEGATIVE (Negative); URINE PROTEIN (DIPSTICK) NEGATIVE (Negative); URINE SPECIFIC GRAVITY 1.015 (1.005-1.035); URINE UROBILINOGEN 0.2 E.U./dl (0.2-1.0)
[2019-07-11] MEDS ORDERED: ONDANSETRON ODT8 MG PO (14:04)
[2019-07-11] MEDS ORDERED: ACETAMINOPHEN-1 EAC1 PO (14:04)
[2019-07-11 14:54] VITALS: BP 104/69
== END 2019-07-11 14:56 | disposition home or self-care (01) ==
LOC: ER 11:01
PROVIDERS: Emergency Medicine
DX: K52.9 Noninfective gastroenteritis and colitis, unspecified (principal); Z90.49 Acquired absence of other specified parts of digestive tract; Z88.8 Allergy status to other drugs, medicaments and biological substances

== ENCOUNTER → 2019-09-05 | Outpatient (CLI) | payer OTHER ==
[~2019-09-05] MED LIST changes: +ACETAMINOPHEN-1 EAC1 PO; +MOBIC7.5 MG PO; +ONDANSETRON ODT8 MG PO
== END ==
LOC: ULTRA 09:40
DX: M79.605 Pain in left leg (principal); M79.89 Other specified soft tissue disorders

== ENCOUNTER 2019-09-10 09:12 | Emergency (ER) | payer OTHER ==
[~2019-09-10] VITALS: Ht 160 cm; Wt 71.2 kg
[~2019-09-10 09:12] MED LIST changes: -MOBIC7.5 MG PO
[2019-09-10 09:58] LABS: ABSOLUTE NEUTROPHILS 2.6 thou/uL (1.4-8.2); BASOPHILS 0.7 % (0.0-2.0); EOSINOPHILS 4.1 % (0.0-3.0); HEMATOCRIT 41.1 % (37.0-47.0); HEMOGLOBIN 13.4 gm/dL (12.0-15.0); LYMPHOCYTES 38.8 % (24.0-44.0); MCH 29.2 pg (26.0-34.0); MCHC 32.5 g/dL (28.0-37.0); MCV 89.8 fL (80.0-100.0); MONOCYTES 7.4 % (1.0-8.0); PLATELET COUNT 326 thou/uL (150-400); RBC 4.57 mil/uL (4.20-5.00); WBC 5.4 thou/uL (4.0-11.0)
[2019-09-10 10:00] LABS: ANION GAP 7 mmol/L (7-16); BUN 9 mg/dL (7-18); CALCIUM 10.1 mg/dL (8.5-10.1); CHLORIDE 103 mmol/L (98-107); CO2 29 mmol/L (21-32); CREATININE 0.7 mg/dL (0.6-1.0); GLUCOSE 92 mg/dL (74-106); POTASSIUM 4.2 mmol/L (3.5-5.1); SODIUM 139 mmol/L (136-145)
[2019-09-10 10:09] LABS: TROPONIN-I <0.06 ng/mL (<0.06)
[2019-09-10 12:01] VITALS: BP 108/56
[2019-09-10] MEDS ORDERED: MOBIC7.5 MG PO (12:18)
--- NOTE | 2019-09-11 16:57 | EKG ---
[place] [address] 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 : 1970 Requested By: Allan Alston Order Number: [id number] MD: Luis Mcgrath Measurements Intervals [place] Rate: 92 P: -85 PA: 147 QRS: -79 QRSD: 92 T: -70 QT: 371 QTc: 459 Interpretive Statements Ectopic atrial rhythm Inferior infarct, age indeterminate Compared to ECG 05/29/2018 08:45:07 Ectopic atrial rhythm now present Myocardial infarct finding now present Sinus rhythm no longer present Electronically Signed On 09-11-2019 16:57:04 DENTAL EQUIPMENT MECHANIC by Luis Mcgrath [email or web address] <ELECTRONICALLY SIGNED> By: Luis Mcgrath MD, [facility] 09/11/19 1657 9 9 Luis Mcgrath MD, [facility] /EPI
--- NOTE | 2019-09-11 17:02 | EKG ---
[place] [address] [facility] 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
== END 2019-09-10 12:28 | disposition home or self-care (01) ==
LOC: ER 09:12
PROVIDERS: Emergency Medicine
DX: R07.89 Other chest pain (principal); R10.13 Epigastric pain; Z90.49 Acquired absence of other specified parts of digestive tract; Z88.8 Allergy status to other drugs, medicaments and biological substances

== ENCOUNTER 2019-10-09 13:58 | Emergency (ER) | payer OTHER ==
[~2019-10-09] VITALS: Ht 162.6 cm; Wt 70.8 kg
[~2019-10-09 13:58] MED LIST changes: +MOBIC7.5 MG PO
[2019-10-09 14:49] LABS: ABSOLUTE NEUTROPHILS 2.7 thou/uL (1.4-8.2); EOSINOPHILS 3.3 % (0.0-3.0); HEMATOCRIT 40.1 % (37.0-47.0); HEMOGLOBIN 13.2 gm/dL (12.0-15.0); LYMPHOCYTES 41.9 % (24.0-44.0); MCH 29.7 pg (26.0-34.0); MCV 89.9 fL (80.0-100.0); MONOCYTES 8.7 % (1.0-8.0); PLATELET COUNT 363 thou/uL (150-400); POLYS 45.1 % (36.0-66.0); RBC 4.45 mil/uL (4.20-5.00); RDW 13.9 % (10.5-14.5)
[2019-10-09 15:03] LABS: ANION GAP 9 mmol/L (7-16); BUN 11 mg/dL (7-18); CALCIUM 9.8 mg/dL (8.5-10.1); CHLORIDE 107 mmol/L (98-107); CO2 28 mmol/L (21-32); CREATININE 0.7 mg/dL (0.6-1.0); GLUCOSE 98 mg/dL (74-106); POTASSIUM 4.1 mmol/L (3.5-5.1); SODIUM 144 mmol/L (136-145)
[2019-10-09 15:10] LABS: TROPONIN-I <0.06 ng/mL (<0.06)
[2019-10-09 17:30] VITALS: BP 114/56
[2019-10-09] MEDS ORDERED: NORCO 5-325 TA1 EAC1 PO (17:32)
--- NOTE | 2019-10-10 07:55 | EKG ---
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 : 1970 Requested By: Micah Andre Order Number: [id number] MD: Luis Mcgrath Measurements Intervals [place] Rate: 86 P: 45 IA: 147 QRS: 28 QRSD: 82 T: 40 QT: 368 QTc: 440 Interpretive Statements Sinus rhythm Borderline T abnormalities, anterior leads Compared to ECG 09/10/2019 11:37:43 No significant change was found Electronically Signed On 10-10-2019 7:55:07 MOTO MIX OPERATOR by Luis Mcgrath [email or web address] <ELECTRONICALLY SIGNED> By: Luis Mcgrath MD, [facility] 10/10/19 0755 1403 1403 Luis Mcgrath MD, FACC /EPI
== END 2019-10-09 17:42 | disposition home or self-care (01) ==
LOC: ER 13:58
PROVIDERS: Emergency Medicine
DX: R07.89 Other chest pain (principal); F41.9 Anxiety disorder, unspecified; R42 Dizziness and giddiness; Z90.49 Acquired absence of other specified parts of digestive tract; Z88.8 Allergy status to other drugs, medicaments and biological substances

== ENCOUNTER 2019-11-20 17:10 | Emergency (ER) | payer OTHER ==
[~2019-11-20] VITALS: Ht 160 cm; Wt 69.0 kg
[~2019-11-20 17:10] MED LIST changes: +NORCO 5-325 TA1 EAC1 PO
[2019-11-20 17:34] LABS: URINE BILIRUBIN NEGATIVE (Negative); URINE BLOOD NEGATIVE (Negative); URINE CLARITY CLEAR; URINE COLOR YELLOW; URINE GLUCOSE-RANDOM* NEGATIVE (Negative); URINE KETONES NEGATIVE (Negative); URINE LEUKOCYTES-REFLEX NEGATIVE (Negative); URINE NITRITE-REFLEX NEGATIVE (Negative); URINE PROTEIN (DIPSTICK) NEGATIVE (Negative); URINE SPECIFIC GRAVITY >= 1.030 (1.005-1.035); URINE UROBILINOGEN 0.2 E.U./dl (0.2-1.0)
[2019-11-20 18:28] LABS: ABSOLUTE NEUTROPHILS 3.6 thou/uL (1.4-8.2); BASOPHILS 0.7 % (0.0-2.0); EOSINOPHILS 1.1 % (0.0-3.0); HEMATOCRIT 41.5 % (37.0-47.0); HEMOGLOBIN 13.6 gm/dL (12.0-15.0); LYMPHOCYTES 16.3 % (24.0-44.0); MCHC 32.8 g/dL (28.0-37.0); MCV 91.3 fL (80.0-100.0); MONOCYTES 7.8 % (1.0-8.0); PLATELET COUNT 338 thou/uL (150-400); POLYS 74.1 % (36.0-66.0); RBC 4.55 mil/uL (4.20-5.00); RDW 14.4 % (10.5-14.5); WBC 4.9 thou/uL (4.0-11.0)
[2019-11-20 18:38] LABS: CREATININE 0.6 mg/dL (0.6-1.0); POTASSIUM 3.6 mmol/L (3.5-5.1)
[2019-11-20 18:45] LABS: ALBUMIN 3.8 g/dL (3.4-5.0); TOTAL BILIRUBIN 0.6 mg/dL (<0.1-1.0); TOTAL PROTEIN 7.7 g/dL (6.4-8.2)
[2019-11-20] MEDS ORDERED: FLAGYL500 M1 PO (21:05)
[2019-11-20] MEDS ORDERED: CIPROFLOXACIN500 M1 PO (21:05)
[2019-11-20] MEDS ORDERED: NORCO 5-325 TA1 EAC1 PO (21:05)
[2019-11-20] MEDS ORDERED: ZOFRAN ODT4 MG PO (21:05)
[2019-11-21 00:35] VITALS: BP 131/82
== END 2019-11-21 00:37 | disposition home or self-care (01) ==
LOC: ER 17:10
PROVIDERS: Emergency Medicine
DX: K52.9 Noninfective gastroenteritis and colitis, unspecified (principal); Z90.49 Acquired absence of other specified parts of digestive tract

== ENCOUNTER → 2020-01-28 | Outpatient (CLI) | payer OTHER ==
[~2020-01-28] MED LIST changes: +FLAGYL500 M1 PO; +ZOFRAN ODT4 MG PO
== END ==
LOC: ULTRA 13:35
DX: N88.8 Other specified noninflammatory disorders of cervix uteri (principal); Z90.721 Acquired absence of ovaries, unilateral

== ENCOUNTER 2020-02-03 15:42 | Emergency (ER) | payer OTHER ==
[~2020-02-03] VITALS: Ht 160 cm; Wt 73.9 kg
[2020-02-03 16:11] LABS: URINE BILIRUBIN NEGATIVE (Negative); URINE BLOOD NEGATIVE (Negative); URINE CLARITY CLEAR; URINE COLOR YELLOW; URINE GLUCOSE-RANDOM* NEGATIVE (Negative); URINE KETONES NEGATIVE (Negative); URINE LEUKOCYTES-REFLEX 3+ (Negative); URINE NITRITE-REFLEX NEGATIVE (Negative); URINE PROTEIN (DIPSTICK) NEGATIVE (Negative); URINE SPECIFIC GRAVITY 1.015 (1.005-1.035)
[2020-02-03 16:21] LABS: CASTS None Seen /LPF (None Seen); CRYSTALS None Seen /LPF (None Seen); SQUAMOUS 0-3 Few /LPF (0-3); URINE RBC None Seen /HPF (0-2); URINE WBC-REFLEX 6-15 Few /HPF (0-5)
[2020-02-03 16:22] LABS: BACTERIA-REFLEX 1-9 Few /HPF (None Seen)
[2020-02-03 18:56] LABS: BASOPHILS 1.4 % (0.0-2.0); EOSINOPHILS 5.6 % (0.0-3.0); HEMATOCRIT 38.2 % (37.0-47.0); HEMOGLOBIN 12.6 gm/dL (12.0-15.0); LYMPHOCYTES 47.3 % (24.0-44.0); MCH 30.2 pg (26.0-34.0); MCHC 32.9 g/dL (28.0-37.0); MCV 91.7 fL (80.0-100.0); PLATELET COUNT 333 thou/uL (150-400); POLYS 36.7 % (36.0-66.0); RBC 4.17 mil/uL (4.20-5.00); RDW 14.1 % (10.5-14.5); WBC 5.5 thou/uL (4.0-11.0)
[2020-02-03 19:04] LABS: CALCIUM 9.1 mg/dL (8.5-10.1); CREATININE 0.7 mg/dL (0.6-1.0); POTASSIUM 3.7 mmol/L (3.5-5.1)
[2020-02-03 19:09] LABS: ALBUMIN 3.5 g/dL (3.4-5.0); TOTAL BILIRUBIN 0.3 mg/dL (<0.1-1.0); TOTAL PROTEIN 6.8 g/dL (6.4-8.2)
[2020-02-03] MEDS ORDERED: NORCO 7.5-3251 EACH PO (21:04)
[2020-02-03] MEDS ORDERED: KEFLEX500 M1 PO (21:04)
[2020-02-03] MEDS ORDERED: SENNA PLUS TAB1 EACH PO (21:06)
[2020-02-03] MEDS ORDERED: ONDANSETRON HCL4 M2 PO (21:06)
[2020-02-03 21:19] VITALS: BP 107/72
== END 2020-02-03 21:22 | disposition home or self-care (01) ==
LOC: ER 15:42
PROVIDERS: Physician Assistant
DX: N39.0 Urinary tract infection, site not specified (principal); N83.201 Unspecified ovarian cyst, right side; Z79.899 Other long term (current) drug therapy; Z88.8 Allergy status to other drugs, medicaments and biological substances

== ENCOUNTER 2020-02-06 14:46 | Emergency (ER) | payer OTHER ==
[~2020-02-06] VITALS: Ht 160 cm; Wt 75.3 kg
[~2020-02-06 14:46] MED LIST changes: +KEFLEX500 M1 PO; +SENNA PLUS TAB1 EACH PO
[2020-02-06 15:02] LABS: URINE BILIRUBIN NEGATIVE (Negative); URINE BLOOD NEGATIVE (Negative); URINE CLARITY CLEAR; URINE COLOR YELLOW; URINE GLUCOSE-RANDOM* NEGATIVE (Negative); URINE KETONES NEGATIVE (Negative); URINE NITRITE-REFLEX NEGATIVE (Negative); URINE PROTEIN (DIPSTICK) NEGATIVE (Negative)
[2020-02-06 15:04] LABS: URINE LEUKOCYTES-REFLEX 1+ (Negative)
[2020-02-06 15:10] LABS: ABSOLUTE NEUTROPHILS 2.6 thou/uL (1.4-8.2); EOSINOPHILS 4.1 % (0.0-3.0); HEMATOCRIT 43.6 % (37.0-47.0); HEMOGLOBIN 14.2 gm/dL (12.0-15.0); LYMPHOCYTES 43.3 % (24.0-44.0); MCH 29.9 pg (26.0-34.0); MCHC 32.6 g/dL (28.0-37.0); MCV 91.9 fL (80.0-100.0); MONOCYTES 7.7 % (1.0-8.0); PLATELET COUNT 334 thou/uL (150-400); POLYS 43.9 % (36.0-66.0); RBC 4.75 mil/uL (4.20-5.00); RDW 14.1 % (10.5-14.5); WBC 5.9 thou/uL (4.0-11.0)
[2020-02-06 15:17] LABS: SQUAMOUS 4-10 Moderate /LPF (0-3)
[2020-02-06 15:18] LABS: CASTS None Seen /LPF (None Seen); CRYSTALS None Seen /LPF (None Seen); URINE RBC None Seen /HPF (0-2); URINE WBC-REFLEX 6-15 Few /HPF (0-5)
[2020-02-06 15:20] LABS: CALCIUM 9.6 mg/dL (8.5-10.1); CREATININE 0.7 mg/dL (0.6-1.0); POTASSIUM 4.1 mmol/L (3.5-5.1)
[2020-02-06 15:26] LABS: ALBUMIN 3.8 g/dL (3.4-5.0); TOTAL BILIRUBIN 0.4 mg/dL (<0.1-1.0); TOTAL PROTEIN 7.7 g/dL (6.4-8.2)
[2020-02-06] MEDS ORDERED: CITRATE OF MAG296 M1 PO (20:39)
[2020-02-06] MEDS ORDERED: TORADOL 10 MG T10 MG PO (20:39)
[2020-02-06 21:03] VITALS: BP 119/75
== END 2020-02-06 21:04 | disposition home or self-care (01) ==
LOC: ER 14:46
PROVIDERS: Physician Assistant
DX: K59.00 Constipation, unspecified (principal); M54.5 Low back pain; R20.2 Paresthesia of skin; Z90.49 Acquired absence of other specified parts of digestive tract; Z79.2 Long term (current) use of antibiotics; Z98.890 Other specified postprocedural states; Z79.899 Other long term (current) drug therapy; Z88.8 Allergy status to other drugs, medicaments and biological substances

== ENCOUNTER → 2020-07-07 | Outpatient (CLI) | payer OTHER ==
[~2020-07-07] MED LIST changes: +CITRATE OF MAG296 M1 PO
== END ==
LOC: LAB 07-06 12:22
PROVIDERS: ATTEND Nurse Practitioner
DX: Z20.828 Contact with and (suspected) exposure to other viral communicable diseases (principal)

== ENCOUNTER → 2020-08-30 | Outpatient (CLI) | payer OTHER | LOC: ULTRA 09:02 | PROVIDERS: ATTEND Family Medicine | DX: R10.2 Pelvic and perineal pain (principal); R10.31 Right lower quadrant pain ==

== ENCOUNTER → 2020-09-06 | Outpatient (CLI) | payer OTHER | LOC: LAB 14:21 | PROVIDERS: ATTEND Family Medicine | DX: Z20.828 Contact with and (suspected) exposure to other viral communicable diseases (principal) ==

== ENCOUNTER → 2021-03-22 | Outpatient (CLI) | payer OTHER | LOC: MRI 12:52 | PROVIDERS: ATTEND Family Medicine | DX: M51.36 Other intervertebral disc degeneration, lumbar region (principal); M47.816 Spondylosis without myelopathy or radiculopathy, lumbar region; M48.061 Spinal stenosis, lumbar region without neurogenic claudication ==

== ENCOUNTER → 2021-04-19 | Outpatient (CLI) | payer OTHER | LOC: ULTRA 09:18 | PROVIDERS: ATTEND Family Medicine | DX: M79.604 Pain in right leg (principal) ==

== ENCOUNTER 2021-06-06 07:54 | Emergency (ER) | payer OTHER ==
[~2021-06-06] VITALS: Ht 160 cm; Wt 75.8 kg
[2021-06-06 08:57] LABS: ABSOLUTE NEUTROPHILS 1.6 thou/uL (1.4-8.2); BASOPHILS 1.6 % (0.0-2.0); EOSINOPHILS 6.5 % (0.0-3.0); HEMATOCRIT 39.1 % (37.0-47.0); HEMOGLOBIN 12.9 gm/dL (12.0-15.0); LYMPHOCYTES 49.2 % (24.0-44.0); MCH 29.5 pg (26.0-34.0); MCV 89.5 fL (80.0-100.0); MONOCYTES 9.9 % (1.0-8.0); PLATELET COUNT 340 thou/uL (150-400); POLYS 32.8 % (36.0-66.0); RBC 4.37 mil/uL (4.20-5.00); RDW 13.6 % (10.5-14.5); WBC 4.9 thou/uL (4.0-11.0)
[2021-06-06 09:07] LABS: CREATININE 0.7 mg/dL (0.6-1.0)
[2021-06-06 09:08] LABS: URINE BILIRUBIN NEGATIVE (Negative); URINE BLOOD NEGATIVE (Negative); URINE CLARITY CLEAR; URINE COLOR YELLOW; URINE GLUCOSE-RANDOM* NEGATIVE (Negative); URINE KETONES NEGATIVE (Negative); URINE NITRITE-REFLEX NEGATIVE (Negative); URINE PROTEIN (DIPSTICK) NEGATIVE (Negative)
[2021-06-06 09:11] LABS: URINE LEUKOCYTES-REFLEX 2+ (Negative)
[2021-06-06 09:22] LABS: ALBUMIN 3.6 g/dL (3.4-5.0); TOTAL BILIRUBIN 0.7 mg/dL (0.2-1.0)
[2021-06-06 09:42] LABS: CASTS None Seen /LPF (None Seen); SQUAMOUS >10 Many /LPF (0-3)
[2021-06-06 09:43] LABS: BACTERIA-REFLEX 1-9 Few /HPF (None Seen); CRYSTALS None Seen /LPF (None Seen); URINE RBC None Seen /HPF (NONE SEEN); URINE WBC-REFLEX 6-15 Few /HPF (0-5)
[2021-06-06] MEDS ORDERED: CEPHALEXIN500 MG PO (10:01)
[2021-06-06 10:03] VITALS: BP 98/47
== END 2021-06-06 10:03 | disposition home or self-care (01) ==
LOC: ER 07:54
PROVIDERS: Emergency Medicine
DX: N39.0 Urinary tract infection, site not specified (principal); R10.31 Right lower quadrant pain; Z90.49 Acquired absence of other specified parts of digestive tract; Z98.890 Other specified postprocedural states; Z79.899 Other long term (current) drug therapy; Z88.8 Allergy status to other drugs, medicaments and biological substances

== ENCOUNTER → 2021-06-07 | Outpatient (CLI) | payer OTHER ==
[~2021-06-07] MED LIST changes: +CEPHALEXIN500 MG PO
== END ==
LOC: BC 09:08
PROVIDERS: ATTEND Family Medicine
DX: Z12.31 Encounter for screening mammogram for malignant neoplasm of breast (principal)

== ENCOUNTER → 2021-06-10 | Emergency (ER) | payer OTHER ==
[~2021-06-10] VITALS: Ht 162.6 cm; Wt 74.8 kg
[2021-06-10 09:48] VITALS: BP 116/52
== END ==
LOC: ER 09:23
DX: R10.9 Unspecified abdominal pain (principal); Z53.21 Procedure and treatment not carried out due to patient leaving prior to being seen by health care provider; Z88.8 Allergy status to other drugs, medicaments and biological substances